=== PATIENT | male | born 1995 | race Caucasian/White ===

== ENCOUNTER 2017-05-26 22:21 | Emergency (ER) | payer OTHER ==
[2017-05-26 22:27] VITALS: BP 136/89; PULSE 74; TEMP 98.1; BMI 24.9
--- NOTE | 2017-05-26 22:43 | PDOC ---
History of Present Illness - General History Source: Patient Exam Limitations: No Limitations - History of Present Illness Initial Comments: 05/26/17 23:38 Patient is a 21 year old male with no significant past medical history who presents to the ED with complaints of Right lower quadrant abdominal pain that began yesterday at 12 pm. Patient reports Right lower quadrant abdominal pain began yesterday around 12pm with no signs of subsiding. He reports having slight fever last week but states he did not and has not had a fever since the pain began. Patient states Right lower quadrant pain has not altered his appetite at all. He reports experiencing intermittent episodes of diarrhea, secondary to right lower quadrant pain. Patient's mother worries that the pain is appendicitis. Denies Chest pain, SOB. Denies nausea, vomiting. Denies dysuria, constipation. Denies contact with sick individuals, out of state travel. Denies any other symptoms. Allergies: None Social history: No alcohol. No smoking. No illicit drugs. Surgical history: None PMD: None <Malik Pugh - Last Filed: 05/26/17 23:38> <Prisca Bartholomew - Last Filed: 05/27/17 23:34> - General Chief Complaint: Pain Stated Complaint: PAIN Time Seen by Provider: 05/26/17 22:33 Past History <Malik Pugh - Last Filed: 05/26/17 23:38> - Past Medical History COPD: No - Immunization History Immunization Up to Date: Yes - Suicide/Smoking/Psychosocial Hx Smoking History: Never smoked <Prisca Bartholomew - Last Filed: 05/27/17 23:34> - Past Medical History Allergies/Adverse Reactions: Allergies Allergy/AdvReac Type Severity Reaction Status Date / Time No Known Allergies Allergy Verified 05/26/17 22:25 Home Medications: Ambulatory Orders NK [No Known Home Medication] 05/26/17 Review of Systems - Review of Systems Able to Perform ROS?: Yes Comments:: 05/26/17 23:38 GENERAL/CONSTITUTIONAL: No fever or chills. No weakness. HEAD, EYES, EARS, NOSE AND THROAT: No change in vision. No ear pain or discharge. No sore throat. CARDIOVASCULAR: No chest pain or shortness of breath. RESPIRATORY: No cough, wheezing, or hemoptysis. GASTROINTESTINAL: +Diarrhea. No nausea, vomiting, or constipation. GENITOURINARY: No dysuria, frequency, or change in urination. MUSCULOSKELETAL: +Right lower quadrant pain. No joint or muscle swelling No neck or back pain. SKIN: No rash NEUROLOGIC: No headache, vertigo, loss of consciousness, or change in strength/ sensation. ENDOCRINE: No increased thirst. No abnormal weight change. HEMATOLOGIC/LYMPHATIC: No anemia, easy bleeding, or history of blood clots. ALLERGIC/IMMUNOLOGIC: No hives or skin allergy. All Other Systems: Reviewed and Negative <Malik Pugh - Last Filed: 05/26/17 23:38> *Physical Exam - Vital Signs Last Vital Signs Temp Pulse Resp BP Pulse Ox 98.1 F 74 18 136/89 98 05/26/17 22:25 05/26/17 22:25 05/26/17 22:25 05/26/17 22:25 05/26/17 22:25 - Physical Exam Comments: 05/26/17 23:39 GENERAL: Awake, alert, and fully oriented, in no acute distress HEAD: No signs of trauma EYES: PERRLA, EOMI, sclera anicteric, conjunctiva clear ENT: Auricles normal inspection, hearing grossly normal, nares patent, oropharynx clear without exudates. Moist mucosa NECK: Normal ROM, supple, no lymphadenopathy, JVD, or masses LUNGS: Breath sounds equal, clear to auscultation bilaterally. No wheezes, and no crackles HEART: Regular rate and rhythm, normal S1 and S2, no murmurs, rubs or gallops ABDOMEN: +Mild tenderness to RLQ with deep palpation. No right sided belly pain with left sided palpation. No testicular pain. No Penile drip. Soft, nontender, normoactive bowel sounds. No guarding, no rebound. No masses EXTREMITIES: Normal range of motion, no edema. No clubbing or cyanosis. No cords, erythema, or tenderness NEUROLOGICAL: Cranial nerves II through XII grossly intact. Normal speech, normal gait SKIN: Warm, Dry, normal turgor, no rashes or lesions noted. <Malik Pugh - Last Filed: 05/26/17 23:38> - Vital Signs Last Vital Signs Temp Pulse Resp BP Pulse Ox 98.1 F 74 18 136/89 98 05/26/17 22:25 05/26/17 22:25 05/26/17 22:25 05/26/17 22:25 05/26/17 22:25 <Prisca Bartholomew - Last Filed: 05/27/17 23:34> ED Treatment Course - LABORATORY CBC & Chemistry Diagram: 05/26/17 23:20 05/26/17 23:20 - ADDITIONAL ORDERS Additional order review: 05/26/17 23:20 RBC 4.77 MCV 85.4 MCHC 34.8 RDW 12.6 MPV 8.0 Neutrophils % 52.6 Lymphocytes % 31.6 Monocytes % 13.8 H Eosinophils % 1.0 Basophils % 1.0 - Medications Given in the ED: ED Medications Discontinued Medications Generic Name Dose Route Start Last Admin Trade Name Freq PRN Reason Stop Dose Admin Sodium Chloride 1,000 ml 05/26/17 23:02 05/26/17 23:23 Normal Saline - IV 05/26/17 23:03 1,000 ml ONCE ONE Administration <Malik Pugh - Last Filed: 05/26/17 23:38> - LABORATORY CBC & Chemistry Diagram: 05/26/17 23:20 05/26/17 23:20 <Prisca Bartholomew - Last Filed: 05/27/17 23:34> Medical Decision Making - Medical Decision Making 05/26/17 23:36 Pt comes with RLQ pain. He states that the pain started at noon; He has been eating all day, but his mom who is a director of medical education is worried that this could be his appendix. Pt has no fever. He has RLQ pain but no rebound. It is possible that this is early appy. WBC is normal. Chemistry pending. CT to be done at 1:30. Pt will be signed out to ER Dr. Dumont who will follow results and disposition the patient. <Prisca Bartholomew - Last Filed: 05/27/17 23:34> *DC/Admit/Observation/Transfer - Attestations Scribe Attestion: 05/26/17 23:39 Documentation prepared by Malik Pugh, acting as curator medical museum for Prisca Bartholomew MD/DO. <Malik Pugh - Last Filed: 05/26/17 23:38> <Prisca Bartholomew - Last Filed: 05/27/17 23:34> Diagnosis at time of Disposition: Diarrhea - Discharge Dispostion Disposition: HOME Condition at time of disposition: Improved - Referrals Referrals: Ethan Tian MD [Staff Physician] - - Patient Instructions Printed Discharge Instructions: DI for Abdominal Pain-Adult, DI for Diarrhea and Traveler's Diarrhea -- Adult Additional Instructions: Activity as tolerated. Stay hydrated. Blood tests and a CAT scan showed no acute abnormalities. Your presentation does not appear to be consistent with appendicitis at this time. The diarrhea and abdominal cramping could be viral, which usually resolves on its own. Continue your medications as previously prescribed by your physician. You should follow up with your primary doctor as soon as possible regarding today's emergency department visit. If symptoms persist, consider calling a wine steward. Return to the emergency department for any new or concerning symptoms, particularly persistent or worsening pain, fevers or chills, bloody vomit or stool, severe diarrhea or dehydration.
[2017-05-26] MEDS ORDERED: SODIUM CHLORIDE 0.9% 1000 ML INFUS.BAG IV ONE (23:02)
[2017-05-26 23:26] LABS: MCH 29.7 pg (25.7-33.7); MCHC 34.8 g/dl (32.0-35.9); MEAN CELL VOLUME 85.4 fl (80-96); NEUTROPHILS 52.6 % (42.8-82.8); PLATELET COUNT 183 K/MM3 (134-434); RDW 12.6 % (11.9-15.9); WHITE BLOOD COUNT 5.8 K/mm3 (4.0-10.0)
[2017-05-26 23:54] LABS: INR 1.13 (0.82-1.09); PROTHROMBIN TIME (PATIENT) 12.8 SEC (9.98-11.88)
[2017-05-27 00:08] LABS: ALBUMIN 3.7 g/dl (3.4-5.0); ANION GAP 10 (8-16); CALCIUM 8.8 mg/dL (8.5-10.1); CO2 25 mmol/L (21-32); CREATININE 1.1 mg/dL (0.7-1.3); GLUCOSE,RANDOM 112 mg/dL (74-106); SGOT/AST 20 U/L (15-37); SGPT/ALT 22 U/L (12-78)
[2017-05-27 00:10] LABS: ALK PHOS 79 U/L (45-117); BILIRUBIN,TOTAL 0.3 mg/dL (0.2-1.0); TOT PROT 6.8 g/dl (6.4-8.2)
--- NOTE | 2017-05-27 02:35 | PDOC ---
*Physical Exam - Vital Signs Last Vital Signs Temp Pulse Resp BP Pulse Ox 98.1 F 74 18 136/89 98 05/26/17 22:25 05/26/17 22:25 05/26/17 22:25 05/26/17 22:25 05/26/17 22:25 - Physical Exam Comments: 05/27/17 02:30 Afebrile, vital signs normal. Comfortably asleep, feels well and without complaints at this time Abdomen is soft/nontender/nondistended. There is no focal guarding or rebound, particularly at McBurney's point. There is no CVA tenderness, there is no palpable hernia or lymphadenopathy. ED Treatment Course - LABORATORY CBC & Chemistry Diagram: 05/26/17 23:20 05/26/17 23:20 - ADDITIONAL ORDERS Additional order review: Laboratory Results 05/26/17 05/26/17 05/26/17 23:20 23:20 23:20 PT with INR 12.80 H INR 1.13 Sodium 141 Potassium 4.0 Chloride 106 Carbon Dioxide 25 Anion Gap 10 BUN 13 Creatinine 1.1 Creat Clearance w eGFR > 60 Random Glucose 112 H Calcium 8.8 Total Bilirubin 0.3 AST 20 ALT 22 Alkaline Phosphatase 79 Total Protein 6.8 Albumin 3.7 Blood Type O POSITIVE Antibody Screen Negative 05/26/17 23:20 RBC 4.77 MCV 85.4 MCHC 34.8 RDW 12.6 MPV 8.0 Neutrophils % 52.6 Lymphocytes % 31.6 Monocytes % 13.8 H Eosinophils % 1.0 Basophils % 1.0 - Medications Given in the ED: ED Medications Discontinued Medications Generic Name Dose Route Start Last Admin Trade Name Demetrioq PRN Reason Stop Dose Admin Sodium Chloride 1,000 ml 05/26/17 23:02 05/26/17 23:23 Normal Saline - IV 05/26/17 23:03 1,000 ml ONCE ONE Administration Medical Decision Making - Medical Decision Making 05/27/17 02:31 Received signout on this healthy 21-year-old male who presented with some sharp right lower quadrant pain in the setting of some diarrhea, labs were within normal limits but family has concerns for appendicitis so CAT scan was performed. Plan at sign out was to follow up CAT scan and distal accordingly, clinically there was relatively low suspicion for appendicitis but there was some right lower quadrant tenderness. No leukocytosis, CT read with moderate feces throughout the colon, no obstruction or colitis, appendix was not definitively identified but there were no secondary signs of appendicitis. No other pathology was noted. Given clinically low suspicion, improved symptoms and exam, no focal peritoneal findings, and normal labs patient can be discharged with return criteria. Patient has no urinary complaints or abnormal findings on CT, low suspicion for UTI. Agrees with discharge plan, understands return criteria. Given the diarrhea and brief pain, could be spasm with slight evidence of colitis. *DC/Admit/Observation/Transfer Diagnosis at time of Disposition: Diarrhea Qualifiers: Diarrhea type: unspecified type Qualified Code(s): R19.7 - Diarrhea, unspecified - Discharge Dispostion Disposition: HOME Condition at time of disposition: Improved - Referrals Referrals: Ethan Tian MD [Staff Physician] - - Patient Instructions Printed Discharge Instructions: DI for Diarrhea and Traveler's Diarrhea -- Adult, DI for Abdominal Pain-Adult Additional Instructions: Activity as tolerated. Stay hydrated. Blood tests and a CAT scan showed no acute abnormalities. Your presentation does not appear to be consistent with appendicitis at this time. The diarrhea and abdominal cramping could be viral, which usually resolves on its own. Continue your medications as previously prescribed by your physician. You should follow up with your primary doctor as soon as possible regarding today's emergency department visit. If symptoms persist, consider calling a box stamper. Return to the emergency department for any new or concerning symptoms, particularly persistent or worsening pain, fevers or chills, bloody vomit or stool, severe diarrhea or dehydration. - Post Discharge Activity
== END 2017-05-27 03:06 | disposition home or self-care (01) ==
LOC: JER 22:21
DX: R19.7 Diarrhea, unspecified (principal)
CPT/HCPCS: 36415; 74177-TC; 80053; 85025; 85610; 86850; 86900; 86901; 99282-25